=== PATIENT | male | born 2000 | race Caucasian/White ===

== ENCOUNTER → 2021-06-22 | Outpatient (CLI) | payer OTHER ==
[~2021-06-22] MED LIST: AZIT200SU PO; AZIT250 PO; CETI5 PO; MONT4 PO; ONDA4ODT MM; RXAZITHSU PO
== END ==
LOC: LAB 15:50 → LAB SHORT 15:50
DX: J02.9 Acute pharyngitis, unspecified (principal)
CPT/HCPCS: 87081